=== PATIENT | male | born 1990 | race Asian ===

== ENCOUNTER 2017-04-07 19:41 | Emergency (ER) | payer OTHER ==
[2017-04-07] MEDS ORDERED: LIDOCAINE 2% 10 ML MDV ONE (21:05)
--- NOTE | 2017-04-07 21:40 | ED Physician Documentation ---
PD HPI HEAD INJURY - Stated complaint Stated Complaint: HEAD LAC - Chief complaint Chief Complaint: Laceration - History obtained from History obtained from: Patient - History of Present Illness Mechanism of head injury: Blow Where head injury occurred: Work Timing - onset: Today Location of injury: Front Associated symptoms: No: LOC, AMS, Nausea / vomiting, Neck pain, Paresthesias Symptoms worsen with: Palpation, Movement Similar symptoms before: Has not had sx before Recently seen: Not recently seen - Additional information Additional information: Patient is a 26 year old male with no significant past medical history who is presenting to the emergency department for forehead laceration. patient states that he was working on an aircraft and hit his head. patient denies loc, nausea , vomiting or amnesia. patient is up to date on his tetanus. Review of Systems Constitutional: denies: Fever, Chills Eyes: denies: Decreased vision, Photophobia Ears: denies: Ear pain, Drainage/discharge Nose: denies: Epistaxis Throat: denies: Dental pain / toothache Cardiac: denies: Chest pain / pressure Respiratory: reports: Reviewed and negative GI: denies: Nausea, Vomiting : reports: Reviewed and negative Skin: reports: Laceration (s) Musculoskeletal: denies: Neck pain, Back pain, Extremity pain, Joint pain Neurologic: reports: Head injury. denies: Syncope, Headache, LOC Immunocompromised: denies: Immunocompromised PD PAST MEDICAL HISTORY - Past Medical History Past Medical History: No - Past Surgical History Past Surgical History: No - Present Medications Home Medications: Ambulatory Orders Medication Instructions Recorded Confirmed No Known Home Medications [No 04/07/17 04/07/17 Known Home Medications] - Allergies Allergies/Adverse Reactions: Allergies Allergy/AdvReac Type Severity Reaction Status Date / Time No Known Drug Allergies Allergy Verified 04/07/17 19:48 - Social History Does the pt smoke?: Yes Smoking Status: Current every day smoker Does the pt drink ETOH?: Yes Does the pt have substance abuse?: No - Immunizations Immunizations are current?: Yes - POLST Patient has POLST: No PD ED PE NORMAL - Vitals Vital signs reviewed: Yes - General General: Alert and oriented X 3, No acute distress - HEENT HEENT: PERRL, Moist mucous membranes - Neck Neck: Supple, no meningeal sign, No bony TTP - Cardiac Cardiac: RRR, No murmur - Respiratory Respiratory: No respiratory distress - Abdomen Abdomen: Non distended - Extremities Extremities: No deformity - Neuro Neuro: Alert and oriented X 3, No motor deficit, No sensory deficit, Normal speech - Psych Psych: Normal mood, Normal affect PD ED PE EXPANDED - HEENT HEENT: Head injury (2cm laceration medial forehead) Results - Vitals Vitals: Vital Signs - 24 hr 04/07/17 19:45 Temperature 37 C Heart Rate 70 Respiratory 18 Rate Blood Pressure 123/84 H O2 Saturation 100 Oxygen O2 Source Room air Procedures - Laceration (location) forehead Length in cm: 2 Wound type: Linear Neurovascular status: Sensory intact, Vascular intact Anesthesia: Lidocaine 1% Wound Preparation: Irrigated copiously NS Skin layer closure: Nylon, Size #-0 - enter number (6), Sutures - enter # (5) Other: Patient tolerated well, No complications, Tetanus UTD Complexity: Simple PD MEDICAL DECISION MAKING - ED course Complexity details: reviewed old records, reviewed results, re-evaluated patient , considered differential, d/w patient ED course: Patient was seen and examined at bedside. Patient did not meet criteria for imaging. patient's laceration was repaired as described above. Patient required no further work up and was stable for discharge [facility] outpatient follow up. Departure - Departure Disposition: 01 Home, Self Care Clinical Impression: Laceration Condition: Good Instructions: ED Laceration Scalp Stitch Or Stap Follow-Up: primary,care provider [Other] - Within 1 week Comments: Your symptoms today are being caused by a laceration. It is important to keep the laceration clean and dry. You should apply topical antibiotic and keep it covered during the day when you are out working and let it dry out at home. Your stitches should be removed in 5 days. You should avoid sun exposure to help decrease scarring. You should take motrin or tylenol as needed for pain. You may return to the emergency department at any time for new, worsening or uncontrollable symptoms. Forms: Activity restrictions
[2017-04-07 21:56] VITALS: BP 136/85
== END 2017-04-07 21:54 | disposition home or self-care (01) ==
LOC: ED 19:41
DX: S01.81XA Laceration without foreign body of other part of head, initial encounter (principal); W22.8XXA Striking against or struck by other objects, initial encounter; Y99.0 Civilian activity done for income or pay; F17.200 Nicotine dependence, unspecified, uncomplicated
CPT/HCPCS: 12011; 99282; 99283

== ENCOUNTER 2020-03-28 14:49 | Outpatient (CLI) | payer OTHER ==
[2020-03-28 15:59] VITALS: BP 118/60
--- NOTE | 2020-03-28 15:59 | SLEEP CARE CONSULTATION ---
Information from patient questionnaire entered by Teresa Farias. I have reviewed and concur with the information entered by Teresa Farias. This document represents the service I personally performed and the decisions made by me, Nakia Muller ARNP. History of Present Illness Service Date and Time: 03/28/2020 1449 Reason for Visit: New patient Chief Complaint: reports: Unrefreshed sleep, Snoring, Excessive daytime sleepiness, Observed pauses in breathing. denies: Insomnia, Fatigue, Frequent awakenings at night Date of Onset: 01/2019 Usual bedtime: 0200; weekends [id number] Time it takes to fall asleep: 30 minutes Snores at night: Yes Observed to quit breathing while asleep: Yes Sleeps alone due to snoring: No Number of times waking at night: 2-3 Reasons for waking at night: reports: Choking, Gasping for air, Bathroom. denies: Snoring Toss, Turn, or Twitch while sleeping: Yes Recalls having dreams: Yes Usually gets out of bed at: [id number]; 3070-9920 on weekends Feels refreshed in the morning: No Morning headache: No Sleepy or fatigued during the day: Yes Ever fallen asleep while driving: No Takes day naps: Yes (1-2 times a week) Dreams during day naps: No Prior sleep studies: No Additional HPI information: I had the pleasure of seeing MICHAEL EDMOND today regarding the possibility of him having a sleep disorder. His current complaints are snoring, observed pauses in breathing, unrefreshed sleep and excessive daytime sleepiness. Patient states that about a year ago he went home to the [facility] and his told him he is snoring loudly and he pauses in breathing and sounds like he is choking when he is sleeping. He does wake up but he does not notice himself choking. He does not wake up feeling rested and is tired during the day. 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 He has a history of acid reflux and is on omeprazole. - Parasomnia Symptoms Ever been unable to move upon waking from sleep: No Walks in sleep: No Talks in sleep: No Ever acted out dreams in sleep: Yes Ever felt weak in the knees when startled or emotional: No Bothered by creepy, crawly, restless sensations in legs: No Problems with memory or concentration: No Subjective Initial [place] Sleepiness Scale score: 6 (in 2019) Past Medical History Past Medical History: reports: GERD. denies: Hypertension, Congestive Heart Failure, Diabetes, Coronary Heart Disease, Arrythmia, Hypothyroidism, Anemia, Anxiety, Impotence, Depression, Mood disorder, Attention deficit Social History The patient's occupation is active . Patient is Single and lives in [place]. Have you smoked in the past 12 months: Yes Cigarettes per day (20/pack): 20 Years of smokin Smoking Pack Years: 16.0 Alcohol use: Yes Alcohol amount and frequency: 3 beers, 2x/month Caffeine use: Yes Caffeine amount and frequency: 1 drink, 2-3 a week Family History Family history of sleep disordered breathing: No Allergies and Home Medications Drug allergies reviewed: Yes (NKDA) Home medication list reviewed: Yes Allergy and home medication list: multivitamin Vitamin C, E, D Fish oil Omeprazole Review of Systems Cardiovascular: denies: high blood pressure, palpitations, chest pain, irregular heart rate or pulse, leg or foot swelling Respiratory: denies: shortness of breath Gastrointestinal: reports: heartburn, vomitting (with the heartburn). denies: difficulty swallowing Urinary: denies: impotence Neurological: denies: headaches, seizure, head trauma, speech dysfunction, gait or balance problems Psychiatric: denies: Attention Deficit Hyperactivity, anxiety, depression, mood disorder, claustrophobia Ear/Nose/Throat: reports: wisdom teeth removed. denies: nasal congestion, sinus problems, nose bleeds, dry mouth/throat, injury to nose, tonsillectomy Endocrine: denies: thyroid disease Musculoskeletal: denies: muscle pain or cramping, mobility problems Immunologic: denies: allergies to food or environment Physical Exam Blood Pressure: 118/60 Cuff size: long Heart Rate: 83 O2 Saturation: 98 Height: 5 ft 7 in Weight: 162 lb Body Mass Index: 25.3 BMI Classification: Overweight Neck circumference: 15.75 (inches) HEENT: No craniofacial malformation Nostrils: patent to airflow Turbinates: swollen Septum: midline Mouth and throat: narrow oropharynx Soft palate: normal Hard palate: normal Uvula: normal Uvula visualization: 50% Mallampati Class II Tongue: enlarged in size with teeth hidalgo on lateral edges Tonsils: 1+ Chin and jaw: normal size and position Neck: normal w/o lymphadenopathy or thyromegaly Heart: regular rate and rhythm Lungs: clear bilaterally Impression and Plan 1. Suspected Obstructive Sleep Apnea-Hypopnea Syndrome, as suggested by a history of loud and irregular snoring, observed cessation of breath while asleep, gasping or choking in sleep, frequent awakening during the night, unrefreshed sleep, and excessive daytime sleepiness. I reviewe with patient that a narrow oropharynx and obesity are common predisposing factors for obstructive sleep apnea-hypopnea syndrome. I recommend proceeding to polysomnography to confirm the diagnosis and to assess severity. If the patient has significant sleep disordered breathing, a manual CPAP titration study will also be performed to find the optimal treatment pressure. I informed the patient of what the sleep studies involve and after some discussion, obtained agreement to proceed. The pathophysiology of obstructive sleep apnea-hypopnea syndrome was discussed with the patient and health risks of cardiovascular and cerebrovascular disease if not treated. AAS brochure for obstructive sleep apnea-hypopnea syndrome given and reviewed. Risks of drowsy driving discussed in detail and patient advised to avoid long distance driving and to rib puller at the first sign of drowsiness. Patient agreed to plan. * Schedule polysomnography +- manual CPAP titration study. * Avoid long distance driving or driving when feeling sleepy. * Avoid alcohol, sedative and muscle relaxant around bedtime. * Attempt to lose weight. * Review instructions provided by trained office staff on how to prepare for the sleep study. * Return for follow-up after sleep study completed. Visit Type: In Office Time Spent with Patient (minutes): 37 Provider Statement: I spent 100% of the Face to Face Visit with the patient with greater than 50% spent counseling the patient and coordination of care.
== END 2020-03-28 14:50 | disposition home or self-care (01) ==
LOC: SC 14:49
PROVIDERS: ATTEND Nurse Practitioner Family
DX: R06.83 Snoring (principal); G47.10 Hypersomnia, unspecified; G47.8 Other sleep disorders; R06.81 Apnea, not elsewhere classified; E66.3 Overweight; Z68.25 Body mass index [BMI] 25.0-25.9, adult; F17.210 Nicotine dependence, cigarettes, uncomplicated
CPT/HCPCS: 99204; 99212

== ENCOUNTER 2020-04-26 19:33 | Outpatient (CLI) | payer OTHER | END 2020-04-26 19:34 | disposition home or self-care (01) | LOC: SC 19:33 | PROVIDERS: ATTEND Nurse Practitioner Family | DX: G47.33 Obstructive sleep apnea (adult) (pediatric) (principal); G47.9 Sleep disorder, unspecified | CPT/HCPCS: 95810 ==

== ENCOUNTER 2020-05-03 15:38 | Outpatient (CLI) | payer OTHER ==
--- NOTE | 2020-05-03 13:42 | SLEEP CARE CONSULTATION ---
Information from patient questionnaire entered by Teresa Farias. I have reviewed and concur with the information entered by Teresa Farias. This document represents the service I personally performed and the decisions made by , Nakia Muller ARNP. History of Present Illness Service Date and Time: 05/03/2020 153 Initial [place] Sleepiness Scale score: 6 Current [place] Sleepiness Scale score: 12 Additional HPI information: MICHAEL EDMOND returns via Telehealth video for follow up and results of the recently performed polysomnography. I explained the pathophysiology behind obstructive sleep apnea. We then spent quite a bit of time discussing different treatment options. For mild obstructive sleep apnea, surgery and oral appliance are alternatives to nasal CPAP therapy but in moderate or severe cases, nasal CPAP is the most effective and reliable treatment. Because apnea is primarily in supine position, then positional management therapy could be effective. Methods discussed such as positioning with pillows, using a T-shirt with tennis balls in the back, and shown commercial products that have a pillow format on back to prevent supine sleep. I reviewed the impact of weight changes on sleep apnea and strongly recommended losing weight. After some discussion, the patient opted to go with the nasal CPAP therapy. A manual titration study will be ordered if unable to find optimal pressure with office adjustments. I explained how CPAP machine works and what to expect when using the machine. Patient counseled not drink alcohol less than 4 hours before bedtime as it can increase snoring and apnea. Patient was cautioned about risks of drowsy driving until sleepiness symptoms resolve. Patient denies drowsy driving. Sleep Study - Results Type of Sleep Study: Polysomnography Year and Where: 04/2020 [facility] Polysomnography/Home Sleep Study results: IMPRESSION: The quality of the study is good. The patient had reduced sleep efficiency due to a prolonged awakening in the first half of the study. The sleep architecture was abnormal for sleep fragmentation and reduced amount of time spent in REM sleep. Respiratory monitoring showed moderate obstructive sleep apnea-hypopnea (AHI = 21.9) associated with frequent arousals, oxyhemoglobin desaturation and mild hypoxia (reina oxygen saturation of 84%). The patient slept almost exclusively in supine position (supine AHI = 26.6; non-supine = 1.05). Snore was loud in intensity. There was no significant periodic leg movement of sleep. Cardiac rhythm was normal sinus rhythm without significant arrhythmia. There was somniloquy. Allergies and Home Medications Drug allergies reviewed: Yes (NKDA) Home medication list reviewed: Yes (no changes) Review of Systems Review of systems same as previous: Yes (no changes) Physical Exam Height: 5 ft 7 in Impression and Plan 1. Obstructive Sleep Apnea-Hypopnea Syndrome, moderate, with lowest oxygen saturation of 84%. Obviously this is the cause of the patients symptoms of unrefreshed sleep, and excessive daytime sleepiness. Positive pressure therapy could benefit his acid reflux/GERD. Patient is agreeable to starting CPAP therapy. A manual titration study will be completed to find optimal treatment pressure with office adjustments. Compliance guidelines also reviewed. A copy of compliance guidelines will be given for reference at check out. Because the apnea is more severe supine, I instructed to avoid sleeping supine using pillow positioning until able to start CPAP use. 2. Somniloquy. No treatment necessary. Titration study. Attempt to lose weight. Avoid alcohol consumption near bedtime. Avoid supine sleep until using CPAP. The patient is again cautioned about driving until sleepiness completely resolves on CPAP therapy. Return after Titration study to be set up on CPAP therapy. Counseling Topics: Sleeping position, Weight loss health impact Visit Type: Telehealth Phone Video Type: DoxMoqom Patient Location: Home Location of Provider: Home Patient agrees and consents to this telehealth visit type: Yes Patient agrees to have their insurance billed: Yes Time Spent with Patient (minutes): 12 Provider Statement: I spent 100% of the Telehealth Phone Call with the patient with greater than 50% spent counseling the patient and coordination of care.
== END 2020-05-03 15:39 | disposition home or self-care (01) ==
LOC: SC 15:38
PROVIDERS: ATTEND Nurse Practitioner Family
DX: G47.33 Obstructive sleep apnea (adult) (pediatric) (principal); G47.50 Parasomnia, unspecified

== ENCOUNTER 2020-06-11 19:31 | Outpatient (CLI) | payer OTHER | END 2020-06-11 19:32 | disposition home or self-care (01) | LOC: SC 19:31 | PROVIDERS: ATTEND Nurse Practitioner Family | DX: G47.33 Obstructive sleep apnea (adult) (pediatric) (principal) | CPT/HCPCS: 95811 ==

== ENCOUNTER 2020-06-15 15:41 | Outpatient (CLI) | payer OTHER ==
--- NOTE | 2020-06-15 15:49 | SLEEP CARE CONSULTATION ---
Information from patient questionnaire entered by Ana Zelaya. I have reviewed and concur with the information entered by Ana Zelaya. This document represents the service I personally performed and the decisions made by , Nakia Muller ARNP. History of Present Illness Service Date and Time: 06/15/2020 1540 Initial [place] Sleepiness Scale score: 6 (in 2020) Current [place] Sleepiness Scale score: 7 Additional HPI information: MICHAEL EDMOND returns via Telehealth visit for follow up of the sleep study with a manual CPAP titration study performed on 06-11-2020. The patient was informed of the following polysomnography findings: He has moderate obstructive sleep apnea with an average AHI of 21.9. His optimal CPAP pressure is 10 cmH2O. Sleep Study - Results Type of Sleep Study: Polysomnography Prior sleep studies: Yes Year and Where: 04/2020 [facility] Polysomnography/Home Sleep Study results: IMPRESSION: The quality of the study is good. CPAP was initiated at 4 cmH2O and titrated up to CPAP at 10 cmH2O. CPAP at 10 cmH2O appeared to be optimal (AHI of 0 per hour on the pressure). There was supine REM sleep on the pressure. Oxygen saturation was normal throughout the night. Lower CPAP settings seemed adequate as well. The patient appeared to have tolerated positive airway pressure therapy very well. The patients sleep efficiency was normal. The sleep architecture was also normal.. There was no significant periodic leg movement of sleep.. Cardiac rhythm was normal sinus rhythm without significant arrhythmia. No abnormal behavior (parasomnia) observed during the night. CONCLUSIONS and RECOMMENDATIONS: 1. Obstructive sleep apnea-hypopnea (ICD-10 G47.33), moderate (AHI was 21.9), adequately controlled with CPAP at 10 cmH2O. CPAP therapy is, therefore, recommended at the pressure setting. AutoCPAP set between 5 and 10 cmH20 is also appropriate. Mask used was a Respironics Nuance nasal pillows size small. Allergies and Home Medications Drug allergies reviewed: Yes (NKDA) Home medication list reviewed: Yes (no changes) Review of Systems Review of systems same as previous: Yes (no changes) Physical Exam Height: 5 ft 7 in Impression and Plan 1. Obstructive Sleep Apnea-Hypopnea Syndrome, moderate. Patient returns after a titration study that found his optimal CPAP pressure is 10 cmH2O. He would also do well with a range of 5-10 cmH2O. The patient will be started on nasal autoCPAP therapy with pressure set at 10 cmH2O. Compliance guidelines also reviewed. A copy of compliance guidelines will be given for reference at check out. Because the apnea is more severe supine, I instructed to avoid sleeping supine using pillow positioning until able to start CPAP use. * Nasal auto CPAP therapy, pressure at 10 cm H2O. * Attempt to lose weight. * Avoid alcohol consumption near bedtime. * Avoid supine sleep until using CPAP. * The patient is again cautioned about driving until sleepiness completely resolves. * Return one month after CPAP obtained. I will assess response to therapy and compliance at that time. Visit Type: Telehealth Video Video Type: Doximity Patient Location: Home Location of Provider: Office Time Spent with Patient (minutes): 16 Provider Statement: I spent 100% of the Telehealth Video Call with the patient with greater than 50% spent counseling the patient and coordination of care.
== END 2020-06-15 15:42 | disposition home or self-care (01) ==
LOC: SC 15:41
PROVIDERS: ATTEND Nurse Practitioner Family
DX: G47.33 Obstructive sleep apnea (adult) (pediatric) (principal)

== ENCOUNTER 2021-05-20 17:44 | Emergency (ER) | payer OTHER ==
[2021-05-20 18:16] VITALS: BP 134/86
--- NOTE | 2021-05-20 19:37 | ED Physician Documentation ---
PD HPI HEAD INJURY - Stated complaint Stated Complaint: HEAD LAC - Chief complaint Chief Complaint: Laceration - History obtained from History obtained from: Patient - Additional information Additional information: 30-year-old gentleman who is active duty in the [employer] was at work today and pulling on a piece of equipment in a gave way and he fell and hit the top of his head on something with a laceration and bleeding. He is up-to-date on tetanus. No loss of consciousness or headache. Review of Systems Constitutional: reports: Reviewed and negative Ears: reports: Reviewed and negative Nose: reports: Reviewed and negative PD PAST MEDICAL HISTORY - Past Surgical History Past Surgical History: No - Present Medications Home Medications: Ambulatory Orders Medication Instructions Recorded Confirmed No Known Home Medications 04/07/17 04/07/17 - Allergies Allergies/Adverse Reactions: Allergies Allergy/AdvReac Type Severity Reaction Status Date / Time No Known Drug Allergies Allergy Verified 05/20/21 18:16 - Social History Does the pt smoke?: Yes Smoking Status: Current every day smoker Does the pt drink ETOH?: Yes Does the pt have substance abuse?: No - Immunizations Immunizations are current?: Yes - POLST Patient has POLST: No PD ED PE NORMAL - Vitals Vital signs reviewed: Yes - General General: Alert and oriented X 3, No acute distress - HEENT HEENT: PERRL, EOMI, Other (He has a abrasion right on the vertex of the scalp. There is mild active bleeding.) - Neck Neck: Supple, no meningeal sign, No bony TTP - Neuro Neuro: Alert and oriented X 3, Normal speech - Psych Psych: Normal mood, Normal affect Results - Vitals Vitals: Vital Signs - 24 hr 05/20/21 18:10 Temperature 37.3 C Heart Rate 68 Respiratory 16 Rate Blood Pressure 134/86 H O2 Saturation 99 Oxygen O2 Source Room air Procedures - Laceration (location) scalp Length in cm: 0.5 Wound preparation: Irrigated copiously NS, Wound explored Skin layer closure: Dermabond (The abrasion was cleansed and closed with Dermabond to stanch any further bleeding.) Other: Tetanus UTD Departure - Departure Disposition: 01 Home, Self Care Clinical Impression: Scalp abrasion Condition: Good Record reviewed to determine appropriate education?: Yes Instructions: ED Abrasion Forms: Activity restrictions
== END 2021-05-20 19:38 | disposition home or self-care (01) ==
LOC: ED 17:44
DX: S00.01XA Abrasion of scalp, initial encounter (principal); W20.8XXA Other cause of strike by thrown, projected or falling object, initial encounter; Y92.139 Unspecified place military base as the place of occurrence of the external cause; Y99.1 Military activity; F17.200 Nicotine dependence, unspecified, uncomplicated
CPT/HCPCS: 12001; 99282

== ENCOUNTER 2021-06-16 21:31 | Emergency (ER) | payer OTHER ==
[2021-06-16] MEDS ORDERED: predniSONE 20 MG TABLET PO STA (22:23)
[2021-06-16] MEDS ORDERED: IBUPROFEN 800 MG TABLET PO STA (22:23)
[2021-06-16] MEDS ORDERED: ACETAMINOPHEN 325 MG TABLET PO STA (22:23)
--- NOTE | 2021-06-16 22:25 | ED Physician Documentation ---
PD HPI HEENT - Stated complaint Stated Complaint: SORE THROAT HEAD PX - Chief complaint Chief Complaint: Heent - History obtained from History obtained from: Patient - Additional information Additional information: Patient comes emergency department chief complaint of sore throat and runny nose. He states that he has had the symptoms just today. No fever or chills. No cough. He denies any sick contacts. He is vaccinated for influenza and Covid. No other complaints at this time. Review of Systems Ten Systems: 10 systems reviewed and negative Constitutional: reports: Reviewed and negative Eyes: reports: Reviewed and negative Ears: reports: Reviewed and negative Nose: reports: Rhinorrhea / runny nose, Congestion Throat: reports: Sore throat Cardiac: reports: Reviewed and negative Respiratory: reports: Reviewed and negative GI: reports: Reviewed and negative : reports: Reviewed and negative Skin: reports: Reviewed and negative Musculoskeletal: reports: Reviewed and negative Neurologic: reports: Reviewed and negative Psychiatric: reports: Reviewed and negative Endocrine: reports: Reviewed and negative Immunocompromised: reports: Reviewed and negative PD PAST MEDICAL HISTORY - Past Medical History Past Medical History: No - Past Surgical History Past Surgical History: No - Present Medications Home Medications: Ambulatory Orders Medication Instructions Recorded Confirmed No Known Home Medications 04/07/17 06/16/21 - Allergies Allergies/Adverse Reactions: Allergies Allergy/AdvReac Type Severity Reaction Status Date / Time No Known Drug Allergies Allergy Verified 06/16/21 22:00 - Social History Does the pt smoke?: No Smoking Status: Never smoker Does the pt drink ETOH?: Yes ETOH Use: Beer Does the pt have substance abuse?: No - Immunizations Immunizations are current?: Yes - POLST Patient has POLST: No PD ED PE NORMAL - Vitals Vital signs reviewed: Yes - General General: Alert and oriented X 3, No acute distress, Well developed/nourished - HEENT HEENT: Atraumatic, PERRL, EOMI, Moist mucous membranes, Other (Mild pharyngeal erythema, no exudates. Tonsils are 1+ bilaterally.) - Neck Neck: Supple, no meningeal sign, No adenopathy - Cardiac Cardiac: RRR, No murmur, Strong equal pulses - Respiratory Respiratory: No respiratory distress, Clear bilaterally - Derm Derm: Normal color, Warm and dry, No rash - Extremities Extremities: No deformity, No edema, No calf tenderness / cord - Neuro Neuro: Alert and oriented X 3, audiologist 2-12 intact, Normal speech, Other (Grossly normal) - Psych Psych: Normal mood, Normal affect Results - Vitals Vitals: Vital Signs - 24 hr 06/16/21 06/16/21 21:45 22:51 Temperature 37.8 C 36.9 C Heart Rate 108 H 86 Respiratory 16 16 Rate Blood Pressure 145/97 H 130/76 O2 Saturation 97 100 Oxygen O2 Source Room air - Labs Labs: Laboratory Tests 06/16/21 21:55 Group A Strep Rapid Negative PD MEDICAL DECISION MAKING - ED course Complexity details: reviewed results, re-evaluated patient, considered differential, d/w patient ED course: The patient was treated symptomatically with ibuprofen, Tylenol, and prednisone. He was worked up with a strep test, which was negative. We have discussed symptomatic management at home, as well as the usual indications for return. Departure - Departure Disposition: 01 Home, Self Care Clinical Impression: Viral upper respiratory infection Condition: Stable Instructions: ED Viral Syndrome Comments: Your strep test is negative. Your symptoms are most consistent with a viral upper respiratory infection you may use ibuprofen and Tylenol to help with your discomfort. You can also drink hot tea and use cough drops. A work note has been given for tomorrow. Forms: Activity restrictions Discharge Date/Time: 06/16/21 23:00
[2021-06-16 22:29] LABS: RAPID STREP SCREEN Negative (Negative)
[2021-06-16 23:16] VITALS: BP 130/76
== END 2021-06-16 23:00 | disposition home or self-care (01) ==
LOC: ED 21:31
DX: J06.9 Acute upper respiratory infection, unspecified (principal)
CPT/HCPCS: 87070; 87430; 99282; 99283; A9270; J7512